=== PATIENT | female | born 1955 | race Caucasian/White ===

== ENCOUNTER 2023-12-23 08:45 | Day surgery (SDC) | payer MEDICARE, SELFPAY ==
--- NOTE | 2023-12-23 09:26 | W.ANESPRE ---
General Info Date of Service Date Performed: 12/23/23 Height: 5 ft 5 in Weight: 117.934 kg Body Mass Index (BMI): 43.2 Surgical Procedure: Operation Date: 12/23/23 11:40 Proposed Procedure Side Surgeon p Cataract Extraction with IOL Implant Left Ren Vernon MD Meds Allergies and Home Medications Allergies Allergy/AdvReac Type Severity Reaction Status Date / Time [id number]-[id number]-DzG Reductase Allergy Intermediate Other (See Verified 12/23/23 09:32 Inhibitor Comment) Home Medication ?Medication ?Instructions ?Recorded aspirin 81 mg capsule 81 mg PO DAILY 12/20/23 calcium carb-ergocalciferol (vit 1 tab PO DAILY 12/20/23 D2) 600 mg calcium-200 unit tablet docosahexaenoic acid (dha)-epa 1 cap PO DAILY 12/20/23 capsule lisinopril 10 1 tab PO DAILY 12/20/23 mg-hydrochlorothiazide 12.5 mg tablet meclizine 25 mg tablet 25 mg PO DAILY PRN 12/20/23 multivitamin 1 tab PO DAILY 12/20/23 naproxen sodium 220 mg tablet 220 mg PO BID PRN 12/20/23 (Aleve) semaglutide 2 mg/dose (8 mg/3 mL) 2 mg subcut QWEEK 12/20/23 subcutaneous pen injector (Ozempic) turmeric 400 mg capsule 400 mg PO DAILY 12/20/23 omega-3 fatty acids 1,000 mg 1,000 mg PO DAILY 12/23/23 capsule Current Visit Medications: Current Medications Generic Name Dose Route Start Last Admin Trade Name Freq PRN Reason Stop Dose Admin Acetaminophen 1,000 mg 12/23/23 06:00 Acetaminophen 500 Mg Tab PO 01/22/24 05:59 Q4H PRN PRN Balanced Salt Solution 500 ml 12/23/23 06:00 Balanced Salt Soln.-Plus 500 Ml Bag OP 01/22/24 05:59 DIRECTED [facility] Miscellaneous Medication 0 ml 12/23/23 06:00 Prednisolone 1%, Moxifloxacin 0.5%, Bromfenac 0.09% 5.6ml Btl OS 01/22/24 05:59 DIRECTED [facility] Miscellaneous Medication 0 ml 12/23/23 06:00 Tropicam./Phenyleph. (1/2.5%) 10 Ml Btl OS 01/22/24 05:59 DIRECTED [facility] Tetracaine HCl 0 ml 12/23/23 06:00 Tetracaine 0.5% 4 Ml Btl OS 01/22/24 05:59 DIRECTED [facility] Active Problems Active Problems: Problem Status Onset Code Cortical age-related cataract, left eye Acute H25.012 Nuclear age-related cataract, left eye Acute H25.12 Medical History Medical History HTN (hypertension) Arthritis Morbid obesity Vitreous floaters Type 2 diabetes mellitus Endometrial cancer Surgical History Surgical History (Updated 12/23/23 @ 11:16 by Ren Vernon MD) Hx of hysterectomy H/O right breast biopsy Hx of cholecystectomy Tobacco Smoking/Tobacco Use Status: Former Tobacco Use Alcohol Alcohol Intake: current Alcohol intake frequency: holidays/special occasions only Substance Use Substance use: Occasionally Substance use type: marijuana Vital Signs and Lab Results Vital Signs Most Recent Vital Signs in EMR: Temp Pulse Resp BP Pulse Ox 36.2 C L 65 16 148/76 H 97 12/23/23 09:44 12/23/23 09:44 12/23/23 09:44 12/23/23 09:44 12/23/23 09:44 Lab Results Blood Type / Crossmatch: No Data to Display Complete Blood Count: No Data to Display Complete Metabolic Panel: No Data to Display Liver Function Panel: No Data to Display Coagulation Panel: No Data to Display Cardiac Panel: No Data to Display Arterial Blood Gas: No Data to Display Venous Blood Gas: No Data to Display Pancreas Panel: No Data to Display Thyroid Panel: No Data to Display Infectious Disease: No Data to Display Blood Cultures: No Data to Display Toxicology Panel: No Data to Display Anesthesia Assessment and Plan Anesthesia History Personal History: No History of Anesthesia Complications Family History: No Family History of Anesthesia Complications Exercise Tolerance Exercise Tolerance: Metabolic Equivalents>4 Pertinent Negatives Pertinent Negatives: No Symptoms of GERD, No Major Pulmonary Symptoms or Complaints and No History of CVA/TIA Cardiac & Pulmonary Exam Cardiac Exam: Normal S1/S2 Heart Sounds Pulmonary Exam: Clear Bilateral Breath Sounds Implantable Cardiac Device Does patient have a Pacemaker or an ICD?: No Airway Exam Known Difficult Airway: No Mallampati Class: 2 Mouth Opening: Normal (> 3cm) Thyromental Distance: Greater than 3 cm Neck Range of Motion: Full ROM Neck Circumference: Normal Teeth Condition: Normal Dentition ASA Classification ASA Score: ASA 3 Emergency Case?: No NPO Status NPO Status: NPO Clears >2 hours, Solids >8 hours Anesthesia Plan Resuscitation Status: Full Code Anesthesia Technique: MAC Anesthesia Airway Planned: Natural Airway Monitors Used: Standard Monitors Preoperative Comments:: 68 yo female for cataract removal. Sig PHMx: HTN, DM2, BMI >40. former smoker. occ EtOh/cannabis.
[2023-12-23 09:44] VITALS: BP 148/76; PULSE 65; RESP 16; TEMP 36.2; O2SAT 97
[2023-12-23] MEDS: Povidone-Iodine Ophth 30 ML BTL (10:53)
[2023-12-23] MEDS: Tetracaine 0.5% 4 ML BTL OS (10:53)
[2023-12-23] MEDS: Balanced Salt Soln.-PLUS 500 ML BAG OP (11:00)
[2023-12-23] MEDS: Duovisc Viscoelastic System EACH 1 EACH (11:00)
[2023-12-23] MEDS: Lidocaine 1% Pres-Free 5 ML VIAL (11:00)
[2023-12-23] MEDS: Prednisolone 1%, Moxifloxacin 0.5%, Bromfenac 0.09% 5.6ML BTL OS (11:11)
[2023-12-23 11:16] VITALS: BP 136/68; PULSE 65; RESP 20; TEMP 36.3
--- NOTE | 2023-12-23 11:16 | W.PM.DSUDISC ---
Date of service: 12/23/23 Time of Service: 11:16 Discharge Plan Disposition Patient Disposition: Home Discharge Details Attending Provider: Ren Vernon Primary Care Provider: Julisa Roldan Home Meds and New Rx's Prescriptions: No Action lisinopril-hydrochlorothiazide 10-12.5 mg tablet 1 tab PO DAILY aspirin 81 mg capsule 81 mg PO DAILY naproxen sodium [Aleve] 220 mg tablet 220 mg PO BID PRN docosahexaenoic acid-epa Capsule 1 cap PO DAILY calcium carbonate-vitamin D2 600 mg calcium- 200 unit tablet 1 tab PO DAILY multivitamin Tablet 1 tab PO DAILY meclizine 25 mg tablet 25 mg PO DAILY PRN Ozempic 2 mg/dose (8 mg/3 mL) pen injector 2 mg subcut QWEEK turmeric 400 mg capsule 400 mg PO DAILY omega-3 fatty acids 1,000 mg capsule 1,000 mg PO DAILY Discharge Instructions Stand Alone Forms: [facility] Post-Op Cataract, Jes Beverly ([facility]) Discharge Orders Discharge Orders: Discharge Order (Routine); Ordered 12/23/23 Ordered By: Ren Vernon DS: Diagnosis Discharge Diagnosis (1) Cortical age-related cataract, left eye: Status: Resolved (2) Nuclear age-related cataract, left eye: Status: Resolved
--- NOTE | 2023-12-23 11:17 | ROE_ITS ---
Date of service: 12/23/23 Time of Service: 11:17 Operative Note Operative Note DATE OF PROCEDURE: 12/23/23 PRE-OP DIAGNOSIS: Nuclear/cortical cataract, left eye POST-OP DIAGNOSIS: same PROCEDURE: Cataract extraction using phacoemulsification with intraocular lens implant, left eye SURGEON: Ren Vernon ANESTHESIA TYPE: Local By Surgeon and MAC Refer to Anesthesia Record PATHOLOGY: none sent COMPLICATIONS: None Patient was transported to: same day Patient's condition: stable Implants: Akbar Clareon [id number] Indications: Progressive decreased vision due to cataract, left eye Procedure Description: CATARACT SURGERY OPERATIVE REPORT PREOPERATIVE DIAGNOSIS: Nuclear/cortical cataract, left eye POSTOPERATIVE DIAGNOSIS: Same OPERATION: Cataract extraction using phacoemulsification with posterior chamber intraocular lens implant, left eye. IOL: IOL [employer] Worker/Model: Akbar Clareon [id number] IOL Power: + 20.0 diopters IOL Serial Number: [id number] Optic Diameter: 6.0mm Haptic/Overall Diameter: 13.0mm PHACO INFO: Akbar [employer]ion Vision System with OZil and Active Fluidics Cumulative Dispersed Energy (CDE): 5.04 seconds SURGEON: Ren Vernon MD, NETTIE ANESTHESIA: Monitored Anesthesia Care (MAC), with local sub-tenon's anesthetic infiltration COMPLICATIONS: None SPECIMENS: None INDICATIONS FOR PROCEDURE: The patient is a 68-year-old lady with history of diminished visual acuity in her left eye secondary to the development of nuclear/cortical cataract. She is significantly symptomatic that she desires cataract surgery and attempt to improve and maximize her vision. The option of cataract surgery was offered to the patient and she wished to proceed. See office notes for detailed information. PROCEDURE: The correct surgical eye was identified and marked as the left eye and the pupil was dilated in the preoperative area using mydriatics and cycloplegics. The dilated pupil size was 8.0 mm. The patient elected to proceed without oral sedation. The patient was brought to the operating room where cardiopulmonary monitoring was instituted and surgical time-out was performed, confirming the correct operative eye and IOL power. Topical anesthesia was administered and ophthalmic povidone-iodine 5% was instilled into the conjunctival fornices. The kimberley-ocular area was prepped with Betadine 10% solution and draped in the usual sterile fashion for intraocular surgery, including an aperture drape. A Tegaderm transparent film dressing was cut in half and used to cover the lashes and lid margins. Care was taken to sequester the lashes and lid margins under the Tegaderm dressing. A lid speculum was placed between the lids of the operative eye and the Akbar LuxOR Revalia operating microscope was maneuvered into position. Mirela scissors were then used to make a conjunctival buttonhole approximately 6mm posterior to the limbus in the inferonasal quadrant. Blunt dissection was carried out to expose bare sclera, and a blunt-tipped sub-tenon?s anesthesia cannula was introduced and passed posteriorly along the globe where non- preserved plain lidocaine was injected into posterior sub-Tenon?s space. A sideport knife was used to make a paracentesis port. Intraocular phenylephrine/lidocaine was injected into the anterior chamber. The anterior chamber was then filled with viscoelastic. A keratome knife was used construct a two-plane clear corneal tunnel extending 2.0mm into clear cornea. A flap was raised on the anterior capsule and capsulorhexis forceps were used to complete a continuous curvilinear capsulorhexis of 5.0 mm. Balanced salt solution was then used to perform cortical cleaving hydrodissection and nuclear hydrodelineation until the lens could be freely rotated within the capsular bag. The lens nucleus was then disassembled and removed within the capsular bag and iris plane using phacoemulsification. Residual cortical material was removed using the irrigation/aspiration handpiece. The posterior capsule was carefully polished to remove as much residual lens epithelial cells as safely possible. The capsular bag was then inflated and the anterior chamber deepened with viscoelastic. The lens implant described above was inserted into the capsular bag using the Akbar Autonome Injector. A Kuglen hook was used to dial the IOL into position. Residual viscoelastic was then removed first from posterior to the IOL, then from the anterior chamber using the I/A handpiece. The lens implant was noted to center nicely within the capsular bag. The incisions were stromally hydrated, and the anterior chamber was reformed using BSS. Then 0.5cc of moxifloxacin 1.0mg/ml were injected into the capsular bag and anterior chamber. The incisions were checked with a Weck spear and found to be secure. Several drops of ophthalmic povidone-iodine 5% were then applied to the eye followed by two drops of combination steroid/NSAID/antibiotic solution. The drapes were removed and a clear plastic protective eye shield was placed over the eye. The patient was then returned to Same Day Surgery in stable condition.
--- NOTE | 2023-12-23 11:18 | W.PM.DSUDISC ---
Date of service: 12/23/23 Time of Service: 11:19 Discharge Plan Disposition Patient Disposition: Home Discharge Details Attending Provider: Ren Vernon Primary Care Provider: Julisa Roldan Home Meds and New Rx's Prescriptions: No Action lisinopril-hydrochlorothiazide 10-12.5 mg tablet 1 tab PO DAILY aspirin 81 mg capsule 81 mg PO DAILY naproxen sodium [Aleve] 220 mg tablet 220 mg PO BID PRN docosahexaenoic acid-epa Capsule 1 cap PO DAILY calcium carbonate-vitamin D2 600 mg calcium- 200 unit tablet 1 tab PO DAILY multivitamin Tablet 1 tab PO DAILY meclizine 25 mg tablet 25 mg PO DAILY PRN Ozempic 2 mg/dose (8 mg/3 mL) pen injector 2 mg subcut QWEEK turmeric 400 mg capsule 400 mg PO DAILY omega-3 fatty acids 1,000 mg capsule 1,000 mg PO DAILY Discharge Instructions Stand Alone Forms: [facility] Post-Op Cataract, Jes Beverly ([facility]) Discharge Orders Discharge Orders: Discharge Order (Routine); Ordered 12/23/23 Ordered By: Ren Vernon DS: Diagnosis Discharge Diagnosis (1) Cortical age-related cataract, left eye: Status: Resolved (2) Nuclear age-related cataract, left eye: Status: Resolved
--- NOTE | 2023-12-23 11:25 | W.ANESPOSTOP ---
Postoperative Evaluation Date, Time and Location Date Performed: 12/23/23 Time Performed: 11:25 Patient Location: Day Surgery Unit Vital Signs Most Recent Imported Vital Signs: Most Recent Vital Signs Temp Pulse Resp BP Pulse Ox 36.3 C L 65 20 136/68 97 12/23/23 11:16 12/23/23 11:16 12/23/23 11:16 12/23/23 11:16 12/23/23 09:44 Pain Score Most Recent Pain Score: Most Recent Pain Score Pain Level 0 12/23/23 11:16 Assessment Mental Status: Awake (Alert & Oriented to Patient Baseline) Airway and Respiratory Function: Patent airway with normal (patient baseline) respiratory exam Cardiovascular Function: Hemodynamically Stable Hydration Status: Adequately Hydrated Nausea & Vomiting: No Nausea or Vomiting Pain: Pt. Denies Any Pain Peripheral Nerve Block: Patient did not receive a nerve block
[2023-12-23 11:52] VITALS: BMI 43.2
== END 2023-12-23 11:30 | disposition home or self-care (01) ==
LOC: SUR 08:47
PROVIDERS: PCP Nurse Practitioner Family; Visit Provider Ophthalmology
PROC: (CPT 66984; principal; 2023-12-23 11:30)
DX: H25.012 Cortical age-related cataract, left eye (principal); H25.12 Age-related nuclear cataract, left eye
CPT/HCPCS: 66984; 00123; V2632; J2003

== ENCOUNTER 2023-12-30 06:36 | Day surgery (SDC) | payer MEDICARE, SELFPAY ==
[2023-12-30] MEDS: Tropicam./Phenyleph. (1/2.5%) 5 ML BTL ×3 (07:09→07:26)
[2023-12-30 07:11] VITALS: BP 138/78; PULSE 67; RESP 16; TEMP 36.4; O2SAT 96
--- NOTE | 2023-12-30 08:02 | W.ANESPRE ---
General Info Date of Service Date Performed: 12/30/23 Height: 5 ft 5 in Weight: 119 kg Body Mass Index (BMI): 43.6 Surgical Procedure: Operation Date: 12/30/23 08:40 Proposed Procedure Side Surgeon p Cataract Extraction with IOL Implant Right Ren Vernon MD Meds Allergies and Home Medications Allergies Allergy/AdvReac Type Severity Reaction Status Date / Time [id number] Reductase Allergy Intermediate Other (See Verified 12/30/23 07:14 Inhibitor Comment) Home Medication ?Medication ?Instructions ?Recorded aspirin 81 mg capsule 81 mg PO DAILY 12/20/23 calcium carb-ergocalciferol (vit 1 tab PO DAILY 12/20/23 D2) 600 mg calcium-200 unit tablet docosahexaenoic acid (dha)-epa 1 cap PO DAILY 12/20/23 capsule lisinopril 10 1 tab PO DAILY 12/20/23 mg-hydrochlorothiazide 12.5 mg tablet meclizine 25 mg tablet 25 mg PO DAILY PRN 12/20/23 multivitamin 1 tab PO DAILY 12/20/23 naproxen sodium 220 mg tablet 220 mg PO BID PRN 12/20/23 (Aleve) semaglutide 2 mg/dose (8 mg/3 mL) 2 mg subcut QWEEK 12/20/23 subcutaneous pen injector (Ozempic) turmeric 400 mg capsule 400 mg PO DAILY 12/20/23 omega-3 fatty acids 1,000 mg 1,000 mg PO DAILY 12/23/23 capsule PFSH Active Problems Active Problems: Problem Status Onset Code Cortical age-related cataract, right eye Acute H25.011 Nuclear age-related cataract, right eye Acute H25.11 Cortical age-related cataract, left eye Resolved H25.012 Nuclear age-related cataract, left eye Resolved H25.12 Medical History Medical History HTN (hypertension) Arthritis Morbid obesity Vitreous floaters Type 2 diabetes mellitus Endometrial cancer Surgical History Surgical History History of cataract surgery Hx of hysterectomy H/O right breast biopsy Hx of cholecystectomy Tobacco Smoking/Tobacco Use Status: Former Tobacco Use Alcohol Alcohol Intake: current Alcohol intake frequency: holidays/special occasions only Substance Use Substance use: Occasionally Substance use type: marijuana Vital Signs and Lab Results Vital Signs Most Recent Vital Signs in EMR: Most Recent Vital Signs Temp Pulse Resp BP Pulse Ox 36.4 C L 67 16 138/78 96 12/30/23 07:11 12/30/23 07:11 12/30/23 07:11 12/30/23 07:11 12/30/23 07:11 Point of Care Results Point of Care Results: Finger Stick Blood Glucose 113 12/30/23 07:18 Lab Results Blood Type / Crossmatch: No Data to Display Complete Blood Count: No Data to Display Complete Metabolic Panel: No Data to Display Liver Function Panel: No Data to Display Coagulation Panel: No Data to Display Cardiac Panel: No Data to Display Arterial Blood Gas: No Data to Display Venous Blood Gas: No Data to Display Pancreas Panel: No Data to Display Thyroid Panel: No Data to Display Infectious Disease: No Data to Display Blood Cultures: No Data to Display Toxicology Panel: No Data to Display Anesthesia Assessment and Plan Anesthesia History Personal History: No History of Anesthesia Complications Family History: No Family History of Anesthesia Complications Exercise Tolerance Exercise Tolerance: Metabolic Equivalents>4 Pertinent Negatives Pertinent Negatives: No Symptoms of GERD Cardiac & Pulmonary Exam Cardiac Exam: Normal S1/S2 Heart Sounds Pulmonary Exam: Clear Bilateral Breath Sounds Implantable Cardiac Device Does patient have a Pacemaker or an ICD?: No Airway Exam Known Difficult Airway: No Mallampati Class: 2 Mouth Opening: Normal (> 3cm) Thyromental Distance: Greater than 3 cm Neck Range of Motion: Full ROM Neck Circumference: Normal Teeth Condition: Normal Dentition ASA Classification ASA Score: ASA 3 Emergency Case?: No NPO Status NPO Status: NPO Clears >2 hours, Solids >8 hours Anesthesia Plan Resuscitation Status: Full Code Anesthesia Technique: MAC Anesthesia Airway Planned: Natural Airway Monitors Used: Standard Monitors
[2023-12-30 08:03] VITALS: BMI 43.6
[2023-12-30] MEDS: Tetracaine 0.5% 4 ML BTL (08:10)
[2023-12-30] MEDS: Povidone-Iodine Ophth 30 ML BTL (08:10)
[2023-12-30] MEDS: Duovisc Viscoelastic System EACH 1 EACH (08:16)
[2023-12-30] MEDS: Lidocaine 1% Pres-Free 5 ML VIAL (08:17)
[2023-12-30] MEDS: Balanced Salt Soln.-PLUS 500 ML BAG OP (08:18)
[2023-12-30] MEDS: Prednisolone 1%, Moxifloxacin 0.5%, Bromfenac 0.09% 5.6ML BTL 5.6 ML (08:19)
[2023-12-30 08:35] VITALS: BP 132/72; PULSE 64; RESP 16; TEMP 36.6; O2SAT 94
--- NOTE | 2023-12-30 08:35 | W.PM.DSUDISC ---
Date of service: 12/30/23 Time of Service: 08:35 Discharge Plan Disposition Patient Disposition: Home Discharge Details Attending Provider: Ren Vernon Primary Care Provider: Julisa Roldan Home Meds and New Rx's Prescriptions: No Action lisinopril-hydrochlorothiazide 10-12.5 mg tablet 1 tab PO DAILY aspirin 81 mg capsule 81 mg PO DAILY naproxen sodium [Aleve] 220 mg tablet 220 mg PO BID PRN docosahexaenoic acid-epa Capsule 1 cap PO DAILY calcium carbonate-vitamin D2 600 mg calcium- 200 unit tablet 1 tab PO DAILY multivitamin Tablet 1 tab PO DAILY meclizine 25 mg tablet 25 mg PO DAILY PRN Ozempic 2 mg/dose (8 mg/3 mL) pen injector 2 mg subcut QWEEK turmeric 400 mg capsule 400 mg PO DAILY omega-3 fatty acids 1,000 mg capsule 1,000 mg PO DAILY Discharge Instructions Stand Alone Forms: [facility] Post-Op Cataract, Jes Beverly ([facility]) Discharge Orders Discharge Orders: Discharge Order (Routine); Ordered 12/30/23 Ordered By: Ren Vernon DS: Diagnosis Discharge Diagnosis (1) Cortical age-related cataract, right eye: Status: Resolved (2) Nuclear age-related cataract, right eye: Status: Resolved
--- NOTE | 2023-12-30 08:36 | ROE_ITS ---
Date of service: 12/30/23 Time of Service: 08:36 Operative Note Operative Note DATE OF PROCEDURE: 12/30/23 PRE-OP DIAGNOSIS: Nuclear/cortical cataract, right eye POST-OP DIAGNOSIS: same PROCEDURE: Cataract extraction using phacoemulsification with intraocular lens implant, right eye SURGEON: Ren Vernon ANESTHESIA TYPE: Local By Surgeon and MAC Refer to Anesthesia Record ESTIMATED BLOOD LOSS: 0 PATHOLOGY: none sent COMPLICATIONS: None Patient was transported to: same day Patient's condition: stable Implants: Akbar Clareon [id number] Indications: Progressive decreased vision due to cataract, right eye Procedure Description: CATARACT SURGERY OPERATIVE REPORT PREOPERATIVE DIAGNOSIS: Nuclear/cortical cataract, right eye POSTOPERATIVE DIAGNOSIS: Same OPERATION: Cataract extraction using phacoemulsification with posterior chamber intraocular lens implant, right eye. IOL: IOL [employer] Supervisor/Model: Akbar Clareon [id number] IOL Power: + 20.0 diopters IOL Serial Number: [id number] Optic Diameter: 6.0mm Haptic/Overall Diameter: 13.0mm PHACO INFO: Akbar [employer] Vision System with OZil and Active Fluidics Cumulative Dispersed Energy (CDE): 7.81 seconds SURGEON: Ren Vernon MD, NETTIE ANESTHESIA: Monitored Anesthesia Care (MAC), with local sub-tenon's anesthetic infiltration COMPLICATIONS: None SPECIMENS: None INDICATIONS FOR PROCEDURE: The patient is a 68-year-old lady with history of diminished visual acuity in her right eye secondary to the development of nuclear/cortical cataract. She has already undergone cataract surgery in the left eye and is doing well postoperatively. She now presents for cataract surgery of the right eye. See office notes for detailed information. PROCEDURE: The correct surgical eye was identified and marked as the right eye and the pupil was dilated in the preoperative area using mydriatics and cycloplegics. The dilated pupil size was 8.0 mm. The patient elected to proceed without oral sedation. The patient was brought to the operating room where cardiopulmonary monitoring was instituted and surgical time-out was performed, confirming the correct operative eye and IOL power. Topical anesthesia was administered and ophthalmic povidone-iodine 5% was instilled into the conjunctival fornices. The kimberley-ocular area was prepped with Betadine 10% solution and draped in the usual sterile fashion for intraocular surgery, including an aperture drape. A Tegaderm transparent film dressing was cut in half and used to cover the lashes and lid margins. Care was taken to sequester the lashes and lid margins under the Tegaderm dressing. A lid speculum was placed between the lids of the operative eye and the Akbar Lux[employer] Revalia operating microscope was maneuvered into position. Mirela scissors were then used to make a conjunctival buttonhole approximately 6mm posterior to the limbus in the inferonasal quadrant. Blunt dissection was carried out to expose bare sclera, and a blunt-tipped sub-tenon?s anesthesia cannula was introduced and passed posteriorly along the globe where non- preserved plain lidocaine was injected into posterior sub-Tenon?s space. A sideport knife was used to make a paracentesis port. Intraocular phenylephrine/lidocaine was injected into the anterior chamber. The anterior chamber was then filled with viscoelastic. A keratome knife was used to construct a two--plane clear corneal tunnel extending 2.0mm into clear cornea. A flap was raised on the anterior capsule and capsulorhexis forceps were used to complete a continuous curvilinear capsulorhexis of 5.5 mm. Balanced salt solution was then used to perform cortical cleaving hydrodissection and nuclear hydrodelineation until the lens could be freely rotated within the capsular bag. The lens nucleus was then disassembled and removed within the capsular bag and iris plane using phacoemulsification. Residual cortical material was removed using the I/A handpiece. The posterior capsule was carefully polished to remove as much residual lens epithelial cells as safely possible. The capsular bag was then inflated and the anterior chamber deepened with cohesive viscoelastic. The lens implant described above was inserted into the capsular bag using the Akbar Autonome Injector. A Kuglen hook was used to dial the IOL into position. Residual viscoelastic was then removed first from posterior to the IOL, then from the anterior chamber using the I/A handpiece. The lens implant was noted to center nicely within the capsular bag. The incisions were stromally hydrated, and the anterior chamber was reformed using BSS. Then 0.5cc of moxifloxacin 1.0mg/ml were injected into the capsular bag and anterior chamber. The incisions were checked with a Weck spear and found to be secure. Several drops of ophthalmic povidone-iodine 5% were then applied to the eye followed by two drops of combination steroid/NSAID/antibiotic solution. The drapes were removed and a clear plastic protective eye shield was placed over the eye. The patient was then returned to Same Day Surgery in stable condition.
--- NOTE | 2023-12-30 08:45 | W.ANESPOSTOP ---
Postoperative Evaluation Date, Time and Location Date Performed: 12/30/23 Time Performed: 08:45 Patient Location: Day Surgery Unit Vital Signs Most Recent Imported Vital Signs: Most Recent Vital Signs Temp Pulse Resp BP Pulse Ox 36.4 C L 67 16 138/78 96 12/30/23 07:11 12/30/23 07:11 12/30/23 07:11 12/30/23 07:11 12/30/23 07:11 Assessment Mental Status: Awake (Alert & Oriented to Patient Baseline) Airway and Respiratory Function: Patent airway with normal (patient baseline) respiratory exam Cardiovascular Function: Hemodynamically Stable Hydration Status: Adequately Hydrated Nausea & Vomiting: No Nausea or Vomiting Pain: Pt. Denies Any Pain Peripheral Nerve Block: Patient did not receive a nerve block
== END 2023-12-30 08:49 | disposition home or self-care (01) ==
LOC: SUR 06:36
PROVIDERS: PCP Nurse Practitioner Family; Visit Provider Ophthalmology
PROC: (CPT 66984; principal; 2023-12-30 08:30)
DX: H25.011 Cortical age-related cataract, right eye (principal); H25.11 Age-related nuclear cataract, right eye; I10 Essential (primary) hypertension; E11.9 Type 2 diabetes mellitus without complications; Z98.42 Cataract extraction status, left eye
CPT/HCPCS: 66984; 00123; V2632; J2003